=== PATIENT | male | born 1965 | race Caucasian/White ===

== ENCOUNTER 2020-05-19 08:34 | Inpatient (IN) | payer BC ==
[2020-05-13 14:23] VITALS: BMI 31.2
--- NOTE | 2020-05-19 07:11 | HP ---
History & Physical Update - Physical Physical: No Change - Assessment Assessment: No Change - Plan Plan: No Change
--- NOTE | 2020-05-19 08:04 | HP ---
CHIEF COMPLAINT: Left knee pain Ortho: Dr. Hunter HISTORY OF PRESENT ILLNESS: 54 year-old male with a PMH significant for HTN, HLD, CAD s/p stents x 2 no longer on Plavix, hypothyroidism, depression/anxiety, PAMELA on CPAP, and left knee osteoarthritis now s/p left partial knee replacement today with Dr. Hunter. 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; with children and grandchildren Smoking: never Alcohol: heavy use until 1999 Drugs: no Family history: mother in 70s with HTN, father 62 lung cancer; sister has a heart problem Allergies No Known Allergies Allergy (Verified 07/21/13 00:59) HOME MEDICATIONS: Home Medications Medication Instructions Recorded Amlodipine Besylate [Norvasc -] 10 mg PO DAILY 05/13/20 Lisinopril/Hydrochlorothiazide 2 each PO DAILY 05/13/20 [Lisinopril-Hctz 20-25 mg Tab] REVIEW OF SYSTEMS CONSTITUTIONAL: Absent: fever, chills, diaphoresis, generalized weakness, malaise, loss of appetite, weight change HEENT: Absent: rhinorrhea, nasal congestion, throat pain, throat swelling, difficulty swallowing, mouth swelling, ear pain, eye pain, visual changes CARDIOVASCULAR: Absent: chest pain, syncope, palpitations, irregular heart rate, lightheadedness, peripheral edema RESPIRATORY: Absent: cough, shortness of breath, dyspnea with exertion, orthopnea, wheezing, stridor, hemoptysis GASTROINTESTINAL: Absent: abdominal pain, abdominal distension, nausea, vomiting, diarrhea, constipation, melena, hematochezia GENITOURINARY: Absent: dysuria, frequency, urgency, hesitancy, hematuria, flank pain, genital pain MUSCULOSKELETAL: Absent: myalgia, arthralgia, joint swelling, back pain, neck pain SKIN: Absent: rash, itching, pallor HEMATOLOGIC/IMMUNOLOGIC: Absent: easy bleeding, easy bruising, lymphadenopathy, frequent infections ENDOCRINE: Absent: unexplained weight gain, unexplained weight loss, heat intolerance, cold intolerance NEUROLOGIC: Absent: headache, focal weakness or paresthesias, dizziness, unsteady gait, seizure, mental status changes, bladder or bowel incontinence PSYCHIATRIC: Absent: anxiety, depression, suicidal or homicidal ideation, hallucinations. PHYSICAL EXAMINATION 05/19/20 05/19/20 05/19/20 16:05 16:20 16:30 Temperature Pulse Rate 82 82 82 Respiratory 20 20 20 Rate Blood Pressure 120/76 121/74 121/74 O2 Sat by Pulse 98 98 98 Oximetry (%) GENERAL: Awake, alert, and fully oriented, in no acute distress. HEAD: Normal with no signs of trauma. EYES: Pupils equal, round and reactive to light, extraocular movements intact, sclera anicteric, conjunctiva clear. No lid lag. LUNGS: Breath sounds equal, clear to auscultation bilaterally. HEART: Regular rate and rhythm, normal S1 and S2 ABDOMEN: Soft, nontender, not distended LLE: Surgical dressings c/d/i; +flex/extend toes, sensory intact NEUROLOGICAL: Cranial nerves II-XII intact. Normal speech. Pre op Hgb 14.8 BUN 15 Cr 1.0 Intra op ASSESSMENT/PLAN: 54 year-old male with a PMH significant for HTN, HLD, CAD s/p stents x 2 no longer on Plavix, hypothyroidism, depression/anxiety, PAMELA on CPAP, and left knee osteoarthritis now s/p left partial knee replacement today with Dr. Hunter. Left partial knee replacement --POD #0 --perioperative antibiotics per surgery --pain management per surgery --ASA 325mg BID --protonix --bowel regimen --incentive spirometry Hypertension --continue amlodipine, lisinopril/HCTZ Hyperlipidemia --not on statin therapy Coronary artery disease s/p stents --continue ASA, amlodipine, lisinopril Hypothyroidism --not on medication Depression/anxiety --not on medication PAMELA on CPAP FEN Fluids: LR@125mL/hr Electrolytes: replete as indicated Nutrition: regular diet DVT prophylaxis: ASA 325mg BID, oob, ambulation Physical therapy Dispo: continues to require inpatient care. Full code. Family Medical History Family History: As Documented Visit type - Emergency Visit Emergency Visit: Yes ED Registration Date: 05/19/20 Care time: The patient presented to the Emergency Department on the above date and was hospitalized for further evaluation of their emergent condition. - New Patient This patient is new to me today: No - Critical Care Critical Care patient: No
--- OUTSIDE RECORDS SUMMARY | 2020-05-19 08:40 | XMS ---
:1965 Author Organization [facility] Support Name Relationship Address Phone UE Unavailable Unavailable Unavailable NATHAN EGAN [address] [place] [address] Re-disclosure Warning The records that you are about to access may contain information from federally- assisted alcohol or drug abuse programs. If such information is present, then the following federally mandated warning applies: This information has been disclosed to you from records protected by federal confidentiality rules (42 CFR part 2). The federal rules prohibit you from making any further disclosure of this information unless further disclosure is expressly permitted by the written consent of the person to whom it pertains or as otherwise permitted by 42 CFR part 2. A general authorization for the release of medical or other information is NOT sufficient for this purpose. The Federal rules restrict any use of the information to criminally investigate or prosecute any alcohol or drug abuse patient.The records that you are about to access may contain highly sensitive health information, the redisclosure of which is protected by Article 27-F of the [facility] Public Health law. If you continue you may haveaccess to information: Regarding HIV / AIDS; Provided by facilities licensed or operated by the [facility] Office of Mental Health; or Provided by the [facility] Office for People With Developmental Disabilities. If such information is present, then the following [facility] mandated warning applies: This information has been disclosed to you from confidential records which are protected by state law. State law prohibits you from making any further disclosure of this information without the specific written consent of the person to whom it pertains, or as otherwise permitted by law. Any unauthorized further disclosure in violation of state law may result in a fine or nursing home sentence or both. A general authorization for the release of medical or other information is NOT sufficient authorization for further disclosure. Insurance Providers Payer name Policy type / Policy ID Covered Covered republican's Policy Plan Coverage type republican ID relationship to Rhoades Information rhoades [employer] PPO [id number] SP [id number]
[2020-05-19] MEDS ORDERED: DEXAMETHASONE SOD PHOSPHATE/PF 10 MG/ML SDV ONE (10:47)
[2020-05-19] MEDS ORDERED: BUPIVACAINE HCL/PF 0.5% (5 MG/ML) 30 ML VIAL IJ ONE (10:47)
[2020-05-19] MEDS ORDERED: MIDAZOLAM HCL 2 MG/2 ML SINGLE DOSE VIAL ONE ×4 (10:47→13:53)
[2020-05-19] MEDS ORDERED: VANCOMYCIN 1,000 MG VIAL (RESTRICTED TO ID ONLY) ONE (11:15)
--- NOTE | 2020-05-19 12:08 | OPR ---
DATE OF OPERATION: 05/19/2020 TITLE OF OPERATION: Left Knee Unicompartmental Knee Replacement PREOPERATIVE DIAGNOSIS: Left Knee Medial Compartment Osteoarthritis POSTOPERATIVE DIAGNOSIS: Left Knee Medial Compartment Osteoarthritis SURGEON: Beny Hunter DO DATA CAPTURE CLERK: Adonis Kilgore DO ANESTHESIA: Spinal anesthesia with regional block SPECIMEN: Bone Cuts PROSTHETIC DEVICE/IMPLANT: NESTOR size 5 femoral and tibial components, 9mm polyethyelene component. COMPLICATIONS: none EBL: 75mL TOURNIQUET TIME: 110 mins INDICATIONS: Mr. Quinn is a 54-year-old male who presented to the office complaining of severe left knee pain. He previously underwent arthroscopic surgery on his knee in the past and developed worsening medial compartment arthritis over the past few years. He was treated non-operatively with multiple modalities including physical therapy, injections, and medications, which he ultimately failed. He continued to have significant pain and ambulatory dysfunction, therefore we discussed surgical treatment options. These options included total knee arthroplasty, and unicompartmental knee arthroplasty. The patients knee pain was 100% located in the medial compartment of the knee, and he had zero pain in the lateral and patellofemoral compartments. After discussing the risks and benefits of the procedure with the patient, he elected to proceed with a unicompartmental knee replacement, which was reasonable in the setting of unicompartmental medial compartment arthritis and pain. The risks, benefits, and alternatives of the procedure were explained in detail, and the patient elected to proceed with surgical intervention. These risks included but were not limited to anesthesia risks, scarring, instability, stiffness, infection, pulmonary embolus, blood clot, blood loss, problems with wound healing, intraoperative fracture, implant failure, damage to nerves and vessels, persistent pain, need for additional surgeries in the future, persistent limp, disability and . SURGEONS NARRATIVE: On the day of surgery, the patient was taken to the operating room and placed on the OR table. Spinal anesthesia was administered by the anesthesiologist. The patient was then positioned supine on the table and all bony prominences were padded. A non-sterile tourniquet was placed on the proximal thigh of the operative leg. The knee was then prepped and draped in the usual sterile fashion and intravenous antibiotics were given for infection prophylaxis. A surgical time out was then performed with the team and the patients identity, procedure, side, availability of implants, and the administration of antibiotics was confirmed. Two parallel bicortical self-drilling pins were placed in the proximal tibia after making stab incision and bluntly dissecting down to bone. These were positioned approximately 10 cm distal to the tubercle. Two pins were then placed in the femur using the same technique. These were located approximately 10cm proximal to the superior pole of the patella. The [employer] navigation arrays were then attached to both the femoral and tibial pins. We then exanguinated the knee using an Esmarch and started the tourniquet. With the knee flexed, a 10cm incision was made slightly medial to the midline and carried down through the subcutaneous fat to the underlying retinaculum. A limited medial parapatellar arthrotomy was then performed. This was followed by a subperiosteal dissection of the tissue off of the proximal medial tibia. A portion of the fat pad was removed from under the patellar tendon to improve visualization and a small portion of fat was excised distally off of the distal supracondylar femur. The knee was flexed further, and the anterior horn of the medial meniscus was released. Grade IV changes were noted diffusely throughout the medial compartment. The lateral and patellofemoral compartments appeared to be in good condition. Femoral and tibia checkpoints were then placed in appropriate locations using a mallet. and the lower extremity was then registered to the robotic navigation device using various joint movements, as well as inputting several checkpoints. The knee was then taken through a full range of motion with a corrective valgus force applied. Alignment in varus/valgus was measured at 10, 30, 60, 90, and 120 degrees of flexion to determine soft tissue balance in all of these positions. The navigation device showed appropriate tracking of the virtual components on the screen, as well as a graphic representation of the soft tissue balance. The components were repositioned virtually using the software until optimal soft tissue balance was achieved. Once this was accomplished, the final plan was saved and sent to the robot. Retractors were then placed around the distal femur. The robot was brought into the sterile field and registered with the navigation device. The robotic arm with a leonides was then used to remove the appropriate amount of bone from the femur and tibia as per the saved software plan. The knee was then irrigated. Trial components were placed, and the knee was taken through a full range of motion to assess the soft tissue balance and alignment. The tracking and range of motion were found to be excellent and the soft tissue balance was optimal and according to plan. All trial components were then removed, and all bony surfaces were irrigated w ith pulsatile lavage, and dried. Bone cement was then prepared on the back table, and final components were cemented in place in the usual fashion. Extruded cement was removed. Once the cement had hardened, the knee was taken through a full range of motion to assess stability, balance, and patellar tracking. These were found to be optimal. The trial polyethelene was exchanged for a final implant. The tourniquet was then deflated. Electrocautery was used to achieve hemostasis. An approximately three-minute diluted betadine soak was performed, followed by thorough pulsatile irrigation with normal saline. One gram of vancomycin powder was then spread around the joint tissues. A periarticular injection was used to locally infiltrate the capsular tissues surrounding the implant and prosthesis. Once this was done, the tourniquet was let down and all bleeders were cauterized. The parapatellar incision was closed with #1 Vicryl suture in a simple stitch fashion, and the subcuticular skin was closed with 0 Vicryl, 2-0 Vicryl suture, and the skin with elian. The tibial and femoral pins were removed, and the incisions were irrigated thoroughly, then closed with 3-0 Monocryl suture. A sterile Aquacell dressing and RYNE bandage was placed, and the patient was placed in MAHIN stockings and bilateral SCD's. The patient tolerated procedure well and arrived in recovery in stable condition. POST-OP PLAN: Pain Control DVT Prophylaxis (ASA 325MG BID x 6 weeks; SCDs while in bed, encourage early ambulation) WBAT/Physical Therapy daily D/C [place] POD 14 F/U Daily AM Labs Will see the patient in my office on POD 14 for a post-operative visit, wound check, and staple removal Medical management Dispo Planning
[2020-05-19] MEDS ORDERED: TRANEXAMIC ACID 1000 MG/10 ML VIAL ONE ×2 (12:10→12:26)
[2020-05-19] MEDS ORDERED: ceFAZolin SODIUM 1 GM VIAL ONE (12:10)
[2020-05-19] MEDS ORDERED: DEXAMETHASONE SOD PHOSPHATE 4 MG/1 ML VIAL ONE ×2 (12:10→12:14)
[2020-05-19] MEDS ORDERED: ONDANSETRON 4 MG/2 ML VIAL ONE ×2 (12:10→12:14)
[2020-05-19] MEDS ORDERED: PHENYLEPHRINE HCL 10 MG/1 ML SINGLE DOSE VIAL ONE (12:14)
[2020-05-19] MEDS ORDERED: SUCCINYLCHOLINE CHLORIDE 200 MG/10 ML SYRINGE ONE (12:18)
[2020-05-19] MEDS ORDERED: PROPOFOL 20 ML ONE ×2 (12:19)
[2020-05-19] MEDS ORDERED: ONDANSETRON 4 MG/2 ML VIAL IVPUSH PRN ×2 (13:27→15:30)
[2020-05-19] MEDS ORDERED: LACTATED RINGERS SOLUTION 1,000 ML IV SCH ×2 (13:30→15:30)
[2020-05-19] MEDS ORDERED: BUPIVICAINE 0.25%/MORPH PF/KETOROLAC - 51ML DISP.SYRINGE IA ONE ×3 (14:39→14:52)
[2020-05-19] MEDS ORDERED: MAG HYDROX/AL HYDROX/SIMETH 30 ML UNIT-DOSE CUP PO PRN (15:30)
[2020-05-19] MEDS: ACETAMINOPHEN 325 MG TABLET (FP) PO SCH ×2 (15:50→21:19)
[2020-05-19] MEDS ORDERED: ACETAMINOPHEN 325 MG TABLET (FP) ONE (15:57)
[2020-05-19] MEDS: oxyCODONE HCL 5 MG TABLET PO PRN ×2 (19:50→22:45)
[2020-05-19] MEDS: CEFAZOLIN 2 GM/D5W 2 GM/50 ML ML IVPB SCH (19:50)
[2020-05-19] MEDS: GABAPENTIN 300 MG CAPSULE PO SCH (21:19)
[2020-05-19] MEDS: SENNOSIDES/DOCUSATE COMBO (SENNA PLUS) TABLET (UD) PO SCH (21:20)
[2020-05-20] MEDS: ACETAMINOPHEN 325 MG TABLET (FP) PO SCH ×4 (03:10→21:32)
[2020-05-20] MEDS: CEFAZOLIN 2 GM/D5W 2 GM/50 ML ML IVPB SCH (03:10)
[2020-05-20] MEDS: oxyCODONE HCL 5 MG TABLET PO PRN ×6 (03:12→21:35)
--- NOTE | 2020-05-20 08:19 | PN ---
Progress Note (short form) - Note Progress Note: Anesthesia postop note 54 y/o M s/p spinal anesthesia/nerve block for kiko knee replacement POD#1, vss, aaox3, pain fairly well controlled, sensory motor intact distally No anesthesia complications.
--- NOTE | 2020-05-20 08:26 | PN ---
Progress Note (short form) - Note Progress Note: ORTHOPEDIC SURGERY PROGRESS NOTE Department of Orthopedic Surgery SUBJECTIVE No acute events overnight. No complaints currently. Denies chest pain, shortness of breath, or calf pain. No nausea or vomiting. Tolerating oral intake. Pain control difficult overnight, but improving. PHYSICAL EXAMINATION General: Alert, oriented, cooperative and no distress. Lower Extremity: Dressings intact; Skin intact, no lesions, rashes or ulcers noted. Muscle mass equal and symmetric to contralateral side. No atrophy noted. No masses or effusions noted. No tenderness to palpation. Full passive and active ROM of the ankle and toes, free from pain. EHL/TA/GS motor intact; SILT distally; 2+ DP pulses; Cap refill brisk. DVT Exam: No evidence of DVT seen on physical exam; No cords or calf tenderness; No significant calf/ankle edema. Intake & Output 05/18/20 05/19/20 05/20/20 23:59 23:59 23:59 Intake Total 3275 925 Output Total 1395 500 Balance 1880 425 Intake: IV 2875 625 Lactated Ringers Solution 375 625 1,000 ml @ 125 mls/hr IV ASDIR HIRA Rx#: [id number] IVPB 100 Oral 400 200 Output: Urine 1320 500 Void 1320 500 Estimated Blood Loss 75 Other: Voiding Method Urinal Urinal Bowel Movement No Weight 218 lb Height 5 ft 10 in Body Mass Index (BMI) 31.2 Weight Measurement Method Stated by Patient Active Medications Generic Name Dose Route Start Last Admin Trade Name Freq PRN Reason Stop Dose Admin Acetaminophen 650 mg 05/19/20 15:00 05/20/20 03:10 Tylenol - PO 05/22/20 14:59 650 mg Q6H HIRA Administration Al Hydroxide/Mg Hydroxide 30 ml 05/19/20 15:30 Mylanta Oral Suspension - PO Q4H PRN DYSPEPSIA Aspirin 325 mg 05/20/20 10:00 Asa - PO BID HIRA Fentanyl 50 mcg 05/19/20 13:27 Sublimaze Injection - IVPUSH [id number] PRN PAIN-PACU ORDER X 4 DOSES ONLY Gabapentin 300 mg 05/19/20 22:00 05/19/20 21:19 Neurontin - PO 05/22/20 21:59 300 mg BID HIRA Administration Lactated Ringer's 1,000 mls @ 125 mls/hr 05/19/20 13:30 05/19/20 18:23 Lactated Ringers Solution IV Not Given ASDIR [facility] Multivitamins/Minerals/Vitamin C 1 tab 05/20/20 10:00 Tab-A-Vit - PO DAILY HIRA Ondansetron HCl 4 mg 05/19/20 13:27 Zofran Injection IVPUSH Q6H PRN NAUSEA AND/OR VOMITING Ondansetron HCl 4 mg 05/19/20 15:30 Zofran Injection IVPUSH Q6H PRN NAUSEA Oxycodone HCl 5 mg 05/19/20 13:28 05/19/20 19:50 Roxicodone - PO 5 mg Q3H PRN Administration PAIN LEVEL 1-5 Oxycodone HCl 10 mg 05/19/20 13:28 05/20/20 06:20 Roxicodone - PO 10 mg Q3H PRN Administration PAIN LEVEL 6-10 Pantoprazole Sodium 40 mg 05/20/20 10:00 Protonix - PO DAILY [facility] Senna/Docusate Sodium 2 tablet 05/19/20 22:00 05/19/20 21:20 Pericolace - PO 2 tablet BID HIRA Administration Vital Signs (last) Temp Pulse Resp BP Pulse Ox 97.9 F 82 16 136/94 98 05/20/20 04:00 05/20/20 04:00 05/20/20 08:07 05/20/20 04:00 05/20/20 08:07 ASSESSMENT AND PLAN Mr. Quinn is a 54 year old male s/p Left medial UKA, POD 1 - Pain control: Transition to oral pain medications, minimize narcotic use - DVT prophylaxis (ASA 325mg BID x 6 weeks) - Ice/Elevation Left knee - Elevate HOB, encourage oral intake - Appreciate medical management (Nutrition optimization, decubitus precautions heel/sacrum) - PT daily, WBAT - Dispo planning
[2020-05-20 08:30] LABS: HEMOGLOBIN 13.1 GM/dl (11.7-16.9); MCH 30.6 pg (25.7-33.7); MCHC 33.5 g/dl (32.0-35.9); MEAN CELL VOLUME 91.5 fl (80-96); MEAN PLT VOLUME 9.3 fl (7.5-11.1); PLATELET COUNT 188 K/MM3 (134-434); RBC 4.27 M/mm3 (4.00-5.60); RDW 12.1 % (11.9-15.9); WHITE BLOOD COUNT 14.8 K/mm3 (4.0-10.8)
[2020-05-20 08:33] LABS: CALCIUM 8.4 mg/dl (8.5-10); POTASSIUM 3.8 mmol/L (3.5-5.1)
[2020-05-20] MEDS: ASPIRIN 325 MG TABLET PO SCH ×2 (09:48→21:32)
[2020-05-20] MEDS: SENNOSIDES/DOCUSATE COMBO (SENNA PLUS) TABLET (UD) PO SCH ×2 (09:48→21:33)
--- NOTE | 2020-05-20 09:48 | PN ---
Physical Exam: SUBJECTIVE: Patient seen and examined in PT room. OBJECTIVE: Vital Signs Period Temp Pulse Resp BP Sys/Fontanez Pulse Ox Last 24 Hr 97.7 F-98.4 F 78-102 16-20 115-142/66-94 93-100 GENERAL: Awake, alert, and fully oriented, in no acute distress. LUNGS: Breath sounds equal, clear to auscultation bilaterally. HEART: Regular rate and rhythm, normal S1 and S2 ABDOMEN: Soft, nontender, not distended LLE: Surgical dressings c/d/i; +flex/extend toes, sensory intact NEUROLOGICAL: Cranial nerves II-XII intact. Normal speech. Laboratory Results - last 24 hr 05/20/20 05/20/20 06:55 06:55 WBC 14.8 H RBC 4.27 Hgb 13.1 Hct 39.0 MCV 91.5 MCH 30.6 MCHC 33.5 RDW 12.1 Plt Count 188 MPV 9.3 Sodium 134 L Potassium 3.8 Chloride 103 Carbon Dioxide 25 Anion Gap 6 L BUN 20.0 H Creatinine 1.0 Est GFR (CKD-EPI)AfAm 97.08 Est GFR (CKD-EPI)NonAf 83.76 Random Glucose 155 H Calcium 8.4 L Current Medications Generic Name Dose Route Start Last Admin Trade Name Freq PRN Reason Stop Dose Admin Acetaminophen 650 mg 05/19/20 15:00 05/20/20 09:49 Tylenol - PO 05/22/20 14:59 650 mg Q6H HIRA Administration Al Hydroxide/Mg Hydroxide 30 ml 05/19/20 15:30 Mylanta Oral Suspension - PO Q4H PRN DYSPEPSIA Amlodipine Besylate 10 mg 05/20/20 13:15 Norvasc - PO DAILY HIRA Aspirin 325 mg 05/20/20 10:00 05/20/20 09:48 Asa - PO 325 mg BID HIRA Administration Fentanyl 50 mcg 05/19/20 13:27 Sublimaze Injection - IVPUSH [id number] PRN PAIN-PACU ORDER X 4 DOSES ONLY Gabapentin 300 mg 05/19/20 22:00 05/20/20 09:49 Neurontin - PO 05/22/20 21:59 300 mg BID HIRA Administration Hydrochlorothiazide 50 mg 05/20/20 13:30 Hctz - PO DAILY HIRA Lactated Ringer's 1,000 mls @ 125 mls/hr 05/19/20 13:30 05/19/20 18:23 Lactated Ringers Solution IV Not Given ASD[facility] Lisinopril 40 mg 05/20/20 13:30 Prinivil PO DAILY [facility] Multivitamins/Minerals/Vitamin C 1 tab 05/20/20 10:00 05/20/20 09:49 Tab-A-Vit - PO 1 tab DAILY [facility] Administration Ondansetron HCl 4 mg 05/19/20 13:27 Zofran Injection IVPUSH Q6H PRN NAUSEA AND/OR VOMITING Ondansetron HCl 4 mg 05/19/20 15:30 Zofran Injection IVPUSH Q6H PRN NAUSEA Oxycodone HCl 5 mg 05/19/20 13:28 05/19/20 19:50 Roxicodone - PO 5 mg Q3H PRN Administration PAIN LEVEL 1-5 Oxycodone HCl 10 mg 05/19/20 13:28 05/20/20 09:48 Roxicodone - PO 10 mg Q3H PRN Administration PAIN LEVEL 6-10 Pantoprazole Sodium 40 mg 05/20/20 10:00 05/20/20 09:49 Protonix - PO 40 mg DAILY [facility] Administration Senna/Docusate Sodium 2 tablet 05/19/20 22:00 05/20/20 09:48 Pericolace - PO 2 tablet BID [facility] Administration ASSESSMENT/PLAN: 54 year-old male with a PMH significant for HTN, HLD, CAD s/p stents x 2 no longer on Plavix, hypothyroidism, depression/anxiety, PAMELA on CPAP, and left knee osteoarthritis now s/p left partial knee replacement. Left partial knee replacement --POD #1 --perioperative antibiotics complete --pain management per surgery --ASA 325mg BID --protonix --bowel regimen --incentive spirometry Hypertension --continue amlodipine, lisinopril/HCTZ Hyperlipidemia --not on statin therapy Coronary artery disease s/p stents --continue ASA, amlodipine, lisinopril Hypothyroidism --not on medication Depression/anxiety --not on medication PAMELA on CPAP FEN Fluids: PO intake adequate Electrolytes: replete as indicated Nutrition: regular diet DVT prophylaxis: ASA 325mg BID, oob, ambulation Physical therapy Dispo: continues to require inpatient care. Full code. Visit type - Emergency Visit Emergency Visit: No - New Patient This patient is new to me today: No - Critical Care Critical Care patient: No
[2020-05-20] MEDS: MULTIVITAMINS (DAILY MVI) TABLET (FP) PO SCH (09:49)
[2020-05-20] MEDS: GABAPENTIN 300 MG CAPSULE PO SCH ×2 (09:49→21:32)
[2020-05-20] MEDS: PANTOPRAZOLE 40 MG TABLET PO SCH (09:49)
[2020-05-20] MEDS ORDERED: PATIENT'S OWN MEDICATION (NON-FORMULARY) (Lisinopril/Hydrochlorothiazide [Lisinopril-Hctz PO SCH (13:15)
[2020-05-20] MEDS: amLODIPine BESYLATE 10 MG TABLET (FP) PO SCH (13:54)
[2020-05-20] MEDS: HYDROCHLOROTHIAZIDE 25 MG TABLET (FP) PO SCH (13:54)
[2020-05-20] MEDS: LISINOPRIL 20 MG TABLET PO SCH (13:54)
[2020-05-21] MEDS: oxyCODONE HCL 5 MG TABLET PO PRN ×3 (02:50→09:38)
[2020-05-21] MEDS: ACETAMINOPHEN 325 MG TABLET (FP) PO SCH ×2 (02:51→09:36)
[2020-05-21 07:54] LABS: HEMOGLOBIN 11.8 GM/dl (11.7-16.9); MCH 29.9 pg (25.7-33.7); MCHC 32.9 g/dl (32.0-35.9); MEAN CELL VOLUME 90.9 fl (80-96); MEAN PLT VOLUME 8.9 fl (7.5-11.1); PLATELET COUNT 188 K/MM3 (134-434); RBC 3.96 M/mm3 (4.00-5.60); RDW 12.3 % (11.9-15.9)
--- NOTE | 2020-05-21 08:16 | DS ---
"Physical Exam: SUBJECTIVE: Patient seen and examined OBJECTIVE: Vital Signs Period Temp Pulse Resp BP Sys/Fontanez Pulse Ox Last 24 Hr 97.5 F-98.7 F 67-88 16-20 115-133/52-76 93-99 PHYSICAL EXAM GENERAL: Awake, alert, and fully oriented, in no acute distress. LUNGS: Breath sounds equal, clear to auscultation bilaterally. HEART: Regular rate and rhythm, normal S1 and S2 ABDOMEN: Soft, nontender, not distended LLE: Surgical dressings c/d/i; +flex/extend toes, sensory intact NEUROLOGICAL: Cranial nerves II-XII intact. Normal speech. LABS Laboratory Results - last 24 hr 05/20/20 05/20/20 05/21/20 06:55 06:55 07:03 WBC 14.8 H 10.0 RBC 4.27 3.96 L Hgb 13.1 11.8 Hct 39.0 36.0 MCV 91.5 90.9 MCH 30.6 29.9 MCHC 33.5 32.9 RDW 12.1 12.3 Plt Count 188 188 MPV 9.3 8.9 Sodium 134 L Potassium 3.8 Chloride 103 Carbon Dioxide 25 Anion Gap 6 L BUN 20.0 H Creatinine 1.0 Est GFR (CKD-EPI)AfAm 97.08 Est GFR (CKD-EPI)NonAf 83.76 Random Glucose 155 H Calcium 8.4 L HOSPITAL COURSE: Date of Admission:05/19/20 Date of Discharge: 05/21/20 54 year-old male with a PMH significant for HTN, HLD, CAD s/p stents x 2 no longer on Plavix, hypothyroidism, depression/anxiety, PAMELA on CPAP, and left knee osteoarthritis now s/p left partial knee replacement. Left partial knee replacement --perioperative antibiotics complete --pain management per surgery; well-managed with PO meds --ASA 325mg BID x 6 weeks Hypertension --continude amlodipine, lisinopril/HCTZ Hyperlipidemia --not on statin therapy Coronary artery disease s/p stents --continued ASA, amlodipine, lisinopril Hypothyroidism --not on medication Depression/anxiety --not on medication PAMELA on CPAP ISTOP This report was requested by: Cindy Jones | Reference #: [id number] There are no results for the search terms that you entered. Minutes to complete discharge: 35 Discharge Summary Problems reviewed: Yes Reason For Visit: LEFT KNEE OA Condition: Improved - Instructions Diet, Activity, Other Instructions: Please follow all instructions given to you by Dr. Hunter and his surgical team. You have a scheduled appointment to see Dr. Hunter in 2 weeks. You will need to have your dressings changed on 05/24. Your aquacel dressing will be changed to xeroform, 4x4s, and RYNE wrap. It is very important to take a full dose aspirin (325mg) twice a day for 6 weeks to avoid blood clots. Referrals: Beny Hunter DO [Staff Physician] - Disposition: HOME - Home Medications Comprehensive Discharge Medication List: Ambulatory Orders Amlodipine Besylate [Norvasc -] 10 mg PO DAILY 05/13/20 Lisinopril/Hydrochlorothiazide [Lisinopril-Hctz 20-25 mg Tab] 2 each PO DAILY 05/13/20 This patient is new to me today: No Emergency Visit: No Critical Care patient: No - Discharge Referral Referred to [facility] No"
--- NOTE | 2020-05-21 08:18 | PN ---
Progress Note (short form) - Note Progress Note: ORTHOPEDIC SURGERY PROGRESS NOTE Department of Orthopedic Surgery SUBJECTIVE No acute events overnight. No complaints currently. Denies chest pain, shortness of breath, or calf pain. No nausea or vomiting. Tolerating oral intake. Pain controlled, patient was able to ambulate with PT yesterday. PHYSICAL EXAMINATION General: Alert, oriented, cooperative and no distress. Lower Extremity: Dressings intact; Skin intact, no lesions, rashes or ulcers noted. Muscle mass equal and symmetric to contralateral side. No atrophy noted. No masses or effusions noted. No tenderness to palpation. Full passive and active ROM of the ankle and toes, free from pain. EHL/TA/GS motor intact; SILT distally; 2+ DP pulses; Cap refill brisk. DVT Exam: No evidence of DVT seen on physical exam; No cords or calf tenderness; No significant calf/ankle edema. Intake & Output 05/19/20 05/20/20 05/21/20 23:59 23:59 23:59 Intake Total 3275 1925 Output Total 1395 3000 Balance 1880 -1075 Intake: IV 2875 625 Lactated Ringers Solution 375 625 1,000 ml @ 125 mls/hr IV ASDIR HIRA Rx#: [id number] IVPB 100 Oral 400 1200 Output: Urine 1320 3000 Void 1320 3000 Estimated Blood Loss 75 Other: Voiding Method Urinal Urinal Toilet # Unmeasured Voids Void 1 Bowel Movement No Weight 218 lb Height 5 ft 10 in Body Mass Index (BMI) 31.2 Weight Measurement Method Stated by Patient Active Medications Generic Name Dose Route Start Last Admin Trade Name Freq PRN Reason Stop Dose Admin Acetaminophen 650 mg 05/19/20 15:00 05/21/20 02:51 Tylenol - PO 05/22/20 14:59 650 mg Q6H HIRA Administration Al Hydroxide/Mg Hydroxide 30 ml 05/19/20 15:30 Mylanta Oral Suspension - PO Q4H PRN DYSPEPSIA Amlodipine Besylate 10 mg 05/20/20 13:15 05/20/20 13:54 Norvasc - PO 10 mg DAILY HRIA Administration Aspirin 325 mg 05/20/20 10:00 05/20/20 21:32 Asa - PO 325 mg BID HIRA Administration Gabapentin 300 mg 05/19/20 22:00 05/20/20 21:32 Neurontin - PO 05/22/20 21:59 300 mg BID HIRA Administration Hydrochlorothiazide 50 mg 05/20/20 13:30 05/20/20 13:54 Hctz - PO 50 mg DAILY HIRA Administration Lisinopril 40 mg 05/20/20 13:30 05/20/20 13:54 Prinivil PO 40 mg DAILY HIRA Administration Multivitamins/Minerals/Vitamin C 1 tab 05/20/20 10:00 05/20/20 09:49 Tab-A-Vit - PO 1 tab DAILY HIRA Administration Ondansetron HCl 4 mg 05/19/20 15:30 Zofran Injection IVPUSH Q6H PRN NAUSEA Oxycodone HCl 5 mg 05/19/20 13:28 05/21/20 06:21 Roxicodone - PO 5 mg Q3H PRN Administration PAIN LEVEL 1-5 Pantoprazole Sodium 40 mg 05/20/20 10:00 05/20/20 09:49 Protonix - PO 40 mg DAILY HIRA Administration Senna/Docusate Sodium 2 tablet 05/19/20 22:00 05/20/20 21:33 Pericolace - PO 2 tablet BID HIRA Administration Vital Signs (last) Temp Pulse Resp BP Pulse Ox 97.5 F L 67 18 133/55 L 99 05/21/20 05:00 05/21/20 05:00 05/21/20 05:00 05/21/20 05:00 05/21/20 05:00 Laboratory 05/21/20 07:03 05/20/20 06:55 ASSESSMENT AND PLAN Mr. Quinn is a 54 year old male s/p Left medial UKA, POD 2 - Pain control: Transition to oral pain medications, minimize narcotic use - DVT prophylaxis (ASA 325mg BID x 6 weeks) - Ice/Elevation Left knee - Elevate HOB, encourage oral intake - Appreciate medical management (Nutrition optimization, decubitus precautions heel/sacrum) - PT daily, WBAT - Change dressings POD 5, and every 3 days afterwards. - Follow up in my office on POD 14 for wound check and staple removal (appointment already made) - Dispo planning
[2020-05-21 09:35] VITALS: BP 118/63; PULSE 87; TEMP 98.4
[2020-05-21] MEDS: GABAPENTIN 300 MG CAPSULE PO SCH (09:36)
[2020-05-21] MEDS: ASPIRIN 325 MG TABLET PO SCH (09:36)
[2020-05-21] MEDS: HYDROCHLOROTHIAZIDE 25 MG TABLET (FP) PO SCH (09:36)
[2020-05-21] MEDS: PANTOPRAZOLE 40 MG TABLET PO SCH (09:36)
[2020-05-21] MEDS: LISINOPRIL 20 MG TABLET PO SCH (09:37)
[2020-05-21] MEDS: SENNOSIDES/DOCUSATE COMBO (SENNA PLUS) TABLET (UD) PO SCH (09:38)
[2020-05-21] MEDS: amLODIPine BESYLATE 10 MG TABLET (FP) PO SCH (09:38)
[2020-05-21] MEDS: MULTIVITAMINS (DAILY MVI) TABLET (FP) PO SCH (11:55)
== END 2020-05-21 13:21 | disposition home or self-care (01) | DRG 470 ==
LOC: FM/S 08:34
PROVIDERS: ADMIT Orthopaedic Surgery Sports Medicine; ATTEND Nurse Practitioner Acute Care
PROC: 8E0Y0CZ Robotic Assisted Procedure of Lower Extremity, Open Approach (ICD-10-PCS; 2020-05-19)
PROC: 0SRD0L9 Replacement of Left Knee Joint with Medial Unicondylar Synthetic Substitute, Cemented, Open Approach (ICD-10-PCS; principal; 2020-05-19 12:48)
DX: M17.12 Unilateral primary osteoarthritis, left knee (principal); M25.562 Pain in left knee; I10 Essential (primary) hypertension; E78.5 Hyperlipidemia, unspecified; Z95.5 Presence of coronary angioplasty implant and graft; E03.9 Hypothyroidism, unspecified; F41.8 Other specified anxiety disorders; G47.33 Obstructive sleep apnea (adult) (pediatric)
CPT/HCPCS: 36415; 73560-TC-LT-FY; 80048; 85027; 94660; 94760; 97010-GP; 97116-GP; 97162-GP

== ENCOUNTER 2021-10-09 06:09 | Day surgery (SDC) | payer BC ==
[2021-10-07 16:27] VITALS: BMI 32.5
[2021-10-09] MEDS ORDERED: BUPIVACAINE HCL 100 ML ONE (07:12)
[2021-10-09] MEDS ORDERED: EPINEPHrine 1:1,000 1,000 MCG/ML ML ONE (07:12)
[2021-10-09] MEDS ORDERED: MIDAZOLAM HCL 2 MG/2 ML SINGLE DOSE VIAL ONE (07:14)
[2021-10-09] MEDS ORDERED: PROPOFOL 20 ML ONE ×2 (07:14)
[2021-10-09] MEDS ORDERED: LIDOCAINE HCL/PF 2% SDV 5ML VIAL ONE (07:15)
[2021-10-09] MEDS ORDERED: LIDOCAINE HCL 2% JELLY (5 ML/TUBE) ONE (07:15)
[2021-10-09] MEDS ORDERED: ceFAZolin SODIUM 1 GM VIAL ONE (07:33)
[2021-10-09] MEDS ORDERED: DEXAMETHASONE SOD PHOSPHATE 4 MG/1 ML VIAL ONE (07:33)
[2021-10-09] MEDS ORDERED: KETOROLAC TROMETHAMINE 30 MG/1 ML VIAL ONE (07:33)
[2021-10-09] MEDS ORDERED: ONDANSETRON 4 MG/2 ML VIAL ONE (07:33)
[2021-10-09] MEDS ORDERED: PHENYLEPHRINE HCL 10 MG/1 ML SINGLE DOSE VIAL ONE (07:35)
[2021-10-09] MEDS ORDERED: PROMETHAZINE HCL 25 MG/1 ML VIAL IVPUSH PRN (08:28)
[2021-10-09] MEDS ORDERED: ONDANSETRON 4 MG/2 ML VIAL IVPUSH PRN (08:28)
[2021-10-09] MEDS ORDERED: oxyCODONE HCL 5 MG TABLET PO PRN ×2 (08:28)
[2021-10-09 10:04] VITALS: TEMP 98
[2021-10-09 11:04] VITALS: BP 157/84; PULSE 69
== END 2021-10-09 11:08 | disposition home or self-care (01) ==
LOC: FASU 06:09
PROVIDERS: ATTEND Orthopaedic Surgery Sports Medicine
PROC: 0SBC4ZZ Excision of Right Knee Joint, Percutaneous Endoscopic Approach (ICD-10-PCS; principal; 2021-10-09 07:55)
DX: S83.241A Other tear of medial meniscus, current injury, right knee, initial encounter (principal); M65.861 Other synovitis and tenosynovitis, right lower leg; M94.261 Chondromalacia, right knee; X58.XXXA Exposure to other specified factors, initial encounter; Y93.9 Activity, unspecified; Y92.9 Unspecified place or not applicable
CPT/HCPCS: 94760